=== PATIENT | female | born 1940 | race American Indian/Alaskan Native ===

== ENCOUNTER 2017-06-19 14:46 | Inpatient (IN) | payer MEDICARE, BC ==
[2017-06-19 14:46] VITALS: PULSE 67
[2017-06-19] MEDS ORDERED: Sodium Chloride 0.9% 500 ML IV STA (15:28)
--- NOTE | 2017-06-19 15:31 | ED PDOC ---
Arrival/HPI - General Time Seen by Provider: 06/19/17 15:06 Historian: Patient - History of Present Illness Narrative History of Present Illness (Text): 06/19/17 15:10 The patient, Adilson Puente, a 75 year old female whose PMHx includes AFib, Parkinson's, and HTN, presents to the ED complaining of nausea, vomiting, and TSAI since this morning. Daughter stated patient has been having worsening of urinary symptoms and generalized weakness x 1 week. Patient denies chest pain, shortness of breath, abdominal pain, vaginal bleeding, leg swelling, recent travel, sick contacts, or fever. Daughter noted patient has had catatonic episodes for "a while", however his last episode lasted longer. Dr. Dowell, PMD 06/19/17 15:47 Time/Duration: > week Symptom Course: Worsening (Since this morning) Context: Home Past Medical History - Provider Review Nursing Documentation Reviewed: Yes - Infectious Disease Hx of Infectious Diseases: None - Tetanus Immunization Tetanus Immunization: Unknown - Cardiac Hx Hypertension: Yes - Pulmonary Hx Pneumonia: Yes - Neurological Hx Parkinson's Disease: Yes - Musculoskeletal/Rheumatological Hx Falls: No - Psychiatric Hx Depression: No Hx Emotional Abuse: No Hx Physical Abuse: No Hx Substance Use: No - Surgical History Hx Hysterectomy: Yes - Suicidal Assessment Feels Threatened In Home Enviroment: No Family/Social History - Physician Review Nursing Documentation Reviewed: Yes Family/Social History: Other (Noncontributory) Smoking Status: Former Smoker Hx Alcohol Use: No Hx Substance Use: No Hx Substance Use Treatment: No Allergies/Home Meds Allergies/Adverse Reactions: Allergies No Known Allergies Allergy (Verified 07/23/15 18:28) Home Medications: Home Meds Medication Instructions Recorded Confirmed Cyanocobalamin [Vitamin B12 1000 1 tab PO DAILY 03/02/15 06/19/17 mcg Tab] Carbidopa/Levodopa 25/100 mg 25 mg PO TID 06/19/17 06/19/17 [Sinemet] Carbidopa/Levodopa 50/200 CR 50 mg PO TID 06/19/17 06/19/17 [Sinemet CR] Lisinopril [Zestril] 10 mg PO DAILY 06/19/17 06/19/17 Metoprolol Succinate [Toprol XL] 25 mg PO DAILY 06/19/17 06/19/17 Review of Systems - Review of Systems Systems not reviewed;Unavailable: Other (Patient's daughter at bedside) Constitutional: Fatigue. absent: Weight Change, Fevers, Night Sweats Eyes: Normal ENT: Normal Respiratory: Normal. absent: SOB, Cough, Sputum, Wheezing Cardiovascular: Normal. absent: Chest Pain, Palpitations Gastrointestinal: Nausea, Vomiting. absent: Abdominal Pain Genitourinary Female: Frequency. absent: Vaginal Bleeding, Vaginal Discharge Musculoskeletal: Normal Skin: Normal. absent: Rash Neurological: Headache. absent: Dizziness, Focal Weakness, Gait Changes, Speech Changes, Facial Droop, Disequilibrium Endocrine: Normal Hemo/Lymphatic: Normal Psychiatric: Normal Physical Exam Vital Signs Temp Pulse Resp BP Pulse Ox 06/19/17 17:44 51 L 18 140/57 L 100 06/19/17 15:11 99.0 F 06/19/17 15:10 98.8 F 60 19 194/96 H 100 Temperature: Afebrile Blood Pressure: Normal Pulse: Regular Respiratory Rate: Normal Appearance: Positive for: Well-Appearing, Non-Toxic, Comfortable Pain Distress: None Mental Status: Positive for: other (Alert and oriented 2, place and person) - Systems Exam Head: Present: Atraumatic, Normocephalic Pupils: Present: PERRL Extroacular Muscles: Present: EOMI Conjunctiva: Present: Normal Mouth: Present: Moist Mucous Membranes. No: Drooling Neck: Present: Normal Range of Motion, Trachea Midline. No: Meningeal Signs Respiratory/Chest: Present: Clear to Auscultation, Good Air Exchange. No: Respiratory Distress, Accessory Muscle Use, Wheezes, Retracting, Rhonchi Cardiovascular: Present: Regular Rate and Rhythm, Normal S1, S2. No: Murmurs Abdomen: Present: Normal Bowel Sounds. No: Tenderness, Distention, Peritoneal Signs, Rebound, Guarding Back: Present: Normal Inspection. No: CVA Tenderness Upper Extremity: Present: Normal Inspection, Normal ROM, NORMAL PULSES, Neurovascularly Intact, Capillary Refill < 2s. No: Cyanosis, Edema Lower Extremity: Present: Normal Inspection, NORMAL PULSES, Normal ROM, Neurovascularly Intact, Capillary Refill < 2 s. No: Edema, CALF TENDERNESS Neurological: Present: GCS=15, CN II-XII Intact, Motor Func Grossly Intact, Normal Sensory Function, Normal Cerebellar Funct, Other (Patient feels too fatigued to walk) Skin: Present: Warm, Dry, Normal Color. No: Rashes Psychiatric: Present: Alert, Normal Insight, Normal Concentration Medical Decision Making ED Course and Treatment: 06/19/17 18:[address] Dowell who is the patient's private doctor. I will review since her symptoms, physical exam, imaging, labs. Labs shows urinary tract infection, and patient has generalized weakness. Dr. Dowell agrees with the plan for observation. Re-evaluation Time: 18:57 Reassessment Condition: Re-examined, Improving,but remains with symptoms - Lab Interpretations Lab Results: 06/19/17 16:20 06/19/17 16:20 Lab Results 06/19/17 16:40: Urine Color Yellow, Urine Appearance Sl cloudy, Urine pH 7.0, Ur Specific [place] 1.015, Urine Protein Trace H, Urine Glucose (UA) Negative, Urine Ketones Trace H, Urine Blood Trace-intact H, Urine Nitrate Negative, Urine Bilirubin Negative, Urine Urobilinogen 0.2, Ur Leukocyte Esterase Small H , Urine RBC 1 - 3, Urine WBC 15 - 20, Ur Epithelial Cells 10 - 12, Urine Bacteria Large 06/19/17 16:30: pO2 28 L, VBG pH 7.38, VBG pCO2 60.0, VBG HCO3 35.5 H, VBG Total CO2 37.3 H, VBG O2 Sat (Calc) 59.0, VBG Base Excess 8.2 H, VBG Potassium 3.8, Glucose 101, Lactate 0.7, FiO2 21.0, Sodium 142.0, Chloride 106.0, Venous Blood Potassium 3.8 06/19/17 16:24: POC Glucose (mg/dL) 111 H 06/19/17 16:20: Sodium 142, Potassium 3.4 L, Chloride 103, Carbon Dioxide 31, Anion Gap 11, BUN 15, Creatinine 0.6 L, Est GFR ( Amer) > 60, Est GFR ( Non-Af Amer) > 60, Random Glucose 101, Calcium 8.9, Phosphorus 2.8, Magnesium 2.1, Total Bilirubin 2.2 H, AST 12 L, ALT 17, Alkaline Phosphatase 61, NT-Pro-B Natriuret Pep 255, Total Protein 7.2, Albumin 4.1, Globulin 3.1, Albumin/ Globulin Ratio 1.3 06/19/17 16:20: PT 11.2, INR 1.04, APTT 28.3 06/19/17 16:20: WBC 5.4, RBC 4.27, Hgb 13.8, Hct 40.1, MCV 93.9, MCH 32.3, MCHC 34.4, RDW 14.1, Plt Count 171, MPV 10.9, Gran % 69.7 H, Lymph % (Auto) 22.9, [place] % (Auto) 6.3 H, Eos % (Auto) 0.7 L, Baso % (Auto) 0.4, Gran # 3.74, Lymph # 1.2, [place] # 0.3, Eos # 0.0, Baso # 0.02 I have reviewed the lab results: Yes Interpretation: Abnormal lab values - RAD Interpretation Narrative RAD Interpretations (Text): 06/19/17 17:04 Accession No. : [id number] Patient Name / ID : KING ADILSON / [id number] Exam Date : 06/19/2017 15:47:23 ( Approved ) Study Comment : Sex / Age : F / 77Y Creator : Erick Enrique MD Dictator : Erick Enrique MD Weapons Engineer : Couture Dressmaker : Erick Enrique MD Approver2 : Report Date : 06/19/2017 16:11:26 My Comment : HISTORY: Sepsis Patient COMPARISON: 07/23/2015 FINDINGS: LUNGS: No active pulmonary disease. PLEURA: No significant pleural effusion identified, no pneumothorax apparent. CARDIOVASCULAR: Moderate cardiomegaly OSSEOUS STRUCTURES: No significant abnormalities. VISUALIZED UPPER ABDOMEN: Normal. OTHER FINDINGS: None. IMPRESSION: No active disease. 06/19/17 18:14 Accession No. : [id number] Patient Name / ID : DEANN [facility] / [id number] Exam Date : 06/19/2017 17:04:09 ( Approved ) Study Comment : Sex / Age : F / 77Y Creator : Halima Roper MD Dictator : Halima Roper MD Weapons Engineer : Couture Dressmaker : Halima Roper MD Approver2 : Report Date : 06/19/2017 17:52:20 My Comment : PROCEDURE: CT Abdomen and Pelvis without Oral or IV contrast. HISTORY: Nausea and vomiting COMPARISON: None available. TECHNIQUE: Contiguous axial images of the abdomen and pelvis. No oral or IV contrast administered. Coronal and Sagittal reformats generated and reviewed. Radiation dose: Total exam DLP = 693.98 mGy-cm. This CT exam was performed using one or more of the following dose reduction techniques: Automated exposure control, adjustment of the mA and/or kV according to patient size, and/or use of iterative reconstruction technique. FINDINGS: There is limited evaluation of the solid organs without the administration of IV contrast. Examination limited by paucity of intra-abdominal and intrapelvic fat as well as lack of oral or IV contrast. LOWER THORAX: No visible consolidation, pleural effusion, or pneumothorax. Partially imaged cardiomegaly, dense coronary, and dense valvular calcifications. LIVER: Hepatomegaly. GALLBLADDER AND BILE DUCTS: Unremarkable unenhanced appearance. PANCREAS: Unremarkable unenhanced appearance. SPLEEN: Unremarkable unenhanced appearance. ADRENALS: Unremarkable unenhanced appearance. KIDNEYS AND URETERS: No hydronephrosis or obstructing renal calculus. BLADDER: Decompressed urinary bladder is not well visualized. REPRODUCTIVE: Not adequately visualized. APPENDIX: The appendix is not identified. No secondary signs of acute appendicitis. BOWEL: The stomach is nondistended. Lack of oral contrast limits evaluation for bowel pathology. The bowel loops appear within normal limits of caliber without evidence of intestinal obstruction. Moderate to severe constipation. PERITONEUM: No significant free fluid. No definite free air. LYMPH NODES: No bulky lymphadenopathy identified. VASCULATURE: Atherosclerotic calcifications of the aorta. No aortic aneurysm. BONES: Degenerative changes. OTHER FINDINGS: None. IMPRESSION: Examination markedly limited due to lack of oral and IV contrast as well as paucity of intra-abdominal or intrapelvic fat. Repeat study following the administration of oral and IV contrast is suggested for further evaluation if indicated. Moderate to severe constipation. Partially imaged cardiomegaly. Dense coronary and valvular calcifications. Hepatomegaly. Radiology Orders: 06/19/17 15:26 CHEST PORTABLE [RAD] Stat 06/19/17 15:30 HEAD W/O CONTRAST [CT] Stat 06/19/17 15:39 ABD & PELVIS W/O PO OR IV CONT [CT] Stat - EKG Interpretation Interpreted by ED Physician: Yes (NSR @ 62 bpm. Normal interval) Type: 12 lead EKG Comparison: No previous EKG avail. - Medication Orders Current Medication Orders: Discontinued Medications Sodium Chloride (Sodium Chloride 0.9%) 500 mls @ 999 mls/hr IV .Q31M STA Stop: 06/19/17 15:58 Last Admin: 06/19/17 16:30 Dose: 999 mls/hr eMAR Start Stop Document 06/19/17 16:30 SF (Rec: 06/19/17 17:10 SF [id number]) Intravenous Solution Start Date 06/19/17 Start Time 16:30 End Date 06/19/17 End time 17:00 Total Infusion Time 30 Ceftriaxone Sodium (Rocephin 1 Gram Ivpb) 1 gm in 100 mls @ 200 mls/hr IVPB STAT STA PRN Reason: Protocol Stop: 06/19/17 18:36 Disposition/Present on Arrival - Present on Arrival Any Indicators Present on Arrival: No History of DVT/PE: No History of Uncontrolled Diabetes: No Urinary Catheter: No History Surgical Site Infection Following: None - Disposition Have Diagnosis and Disposition been Completed?: Yes Diagnosis: Acute cystitis, Generalized weakness, Unstable gait, Failure to thrive Disposition: HOSPITALIZED Disposition Time: 18:58 Patient Plan: Admission Condition: STABLE Discharge Instructions (ExitCare): Weakness (ED) Referrals: Moody Dowell MD [Primary Care Provider] - Follow up with primary
--- NOTE | 2017-06-19 16:13 | RAD ---
HISTORY: Sepsis Patient COMPARISON: 07/23/2015 FINDINGS: LUNGS: No active pulmonary disease. PLEURA: No significant pleural effusion identified, no pneumothorax apparent. CARDIOVASCULAR: Moderate cardiomegaly OSSEOUS STRUCTURES: No significant abnormalities. VISUALIZED UPPER ABDOMEN: Normal. OTHER FINDINGS: None. IMPRESSION: No active disease.
[2017-06-19 16:40] LABS: BASO # 0.02 K/mm3 (0.0-2.0); BASO % 0.4 % (0.0-3.0); EOS % 0.7 % (1.5-5.0); GRAN # 3.74 (1.4-6.5); GRAN % 69.7 % (50.0-68.0); HEMATOCRIT 40.1 % (36.0-48.0); LYMPH # 1.2 (1.2-3.4); LYMPH % 22.9 % (22.0-35.0); MEAN CELL VOLUME 93.9 fl (80.0-105.0); MEAN CORPUSCULAR HEMOGLOBIN 32.3 pg (25.0-35.0); MEAN CORPUSCULAR HGB CONC 34.4 g/dl (31.0-37.0); MEAN PLATELET VOLUME 10.9 fl (7.0-11.0); MONO # 0.3 (0.1-0.6); MONO % 6.3 % (1.0-6.0); RED CELL DISTRIBUTION WIDTH 14.1 % (11.5-14.5); WHITE BLOOD COUNT 5.4 10^3/ul (4.5-11.0)
[2017-06-19 16:47] LABS: VENOUS BLOOD GAS BASE EXCESS 8.2 mmol/L (0.0-2.0); VENOUS BLOOD PH 7.38 (7.32-7.43)
[2017-06-19 16:50] LABS: INR 1.04 (0.93-1.08); PARTIAL THROMBOPLASTIN TIME 28.3 Seconds (23.7-30.8)
[2017-06-19 16:51] LABS: ALB/GLOB RATIO 1.3 (1.1-1.8); ALKALINE PHOSPHATASE 61 U/L (38-126); ALT/SGPT 17 U/L (7-56); AST/SGOT 12 U/L (14-36); BILIRUBIN,TOTAL 2.2 mg/dL (0.2-1.3); BLOOD UREA NITROGEN 15 mg/dL (7-21); CALCIUM 8.9 mg/dL (8.4-10.5); CARBON DIOXIDE 31 mmol/L (21-33); CHLORIDE 103 mmol/L (98-107); GFR AFRICAN-AMERICAN > 60; GLUCOSE,RANDOM 101 mg/dL (70-110); MAGNESIUM 2.1 mg/dL (1.7-2.2); PHOSPHOROUS 2.8 mg/dL (2.5-4.5); POTASSIUM 3.4 mmol/L (3.6-5.0); SODIUM 142 mmol/L (132-148); TOTAL PROTEIN 7.2 g/dL (5.8-8.3)
[2017-06-19 16:59] LABS: URINE BILIRUBIN NEGATIVE (NEGATIVE); URINE BLOOD TRACE-INTACT (NEGATIVE); URINE GLUCOSE (UA) NEGATIVE (NEGATIVE); URINE KETONE TRACE mg/dL (NEGATIVE); URINE LEUKOCYTE ESTERASE SMALL Leu/uL (NEGATIVE); URINE PROTEIN TRACE mg/dL (<30 mg/dL); URINE UROBILINOGEN 0.2 E.U./dL (<1 E.U./dL)
[2017-06-19 17:06] LABS: URINE APPEARANCE SL CLOUDY (CLEAR); URINE COLOR YELLOW (YELLOW)
[2017-06-19 17:17] LABS: URINE BACTERIA LARGE (NEG); URINE WBC 15 - 20 /hpf (0-6)
--- NOTE | 2017-06-19 17:30 | CARD ---
APPROVED REPORT EKG Measurement Heart [id number] <Conclusion> Normal sinus rhythm Normal ECG
--- NOTE | 2017-06-19 17:34 | CT ---
PROCEDURE: CT HEAD WITHOUT CONTRAST. HISTORY: TSAI COMPARISON: Noncontrast head CT performed 07/23/15 TECHNIQUE: Axial computed tomography images were obtained through the head/brain without intravenous contrast. Radiation dose: Total exam DLP = 1114.07 MGy-cm. This CT exam was performed using one or more of the following dose reduction techniques: Automated exposure control, adjustment of the mA and/or kV according to patient size, and/or use of iterative reconstruction technique. FINDINGS: Streak artifact obscures evaluation of the skullbase. HEMORRHAGE: No intracranial hemorrhage. BRAIN: Diffuse atrophy with prominence of the ventricles and sulci noted. No mass effect or edema. Dense intracranial atherosclerosis. Scattered periventricular and subcortical white matter hypodensities, which are nonspecific, but often seen with chronic microvascular ischemic disease. Please note that MRI with diffusion imaging is more sensitive in the detection of acute ischemic event. VENTRICLES: No hydrocephalus. CALVARIUM: Unremarkable. PARANASAL SINUSES: Unremarkable as visualized. No significant inflammatory changes. MASTOID AIR CELLS: Unremarkable as visualized. No inflammatory changes. OTHER FINDINGS: None. IMPRESSION: Generalized atrophy. Nonspecific white matter changes.
--- NOTE | 2017-06-19 17:54 | CT ---
PROCEDURE: CT Abdomen and Pelvis without Oral or IV contrast. HISTORY: Nausea and vomiting COMPARISON: None available. TECHNIQUE: Contiguous axial images of the abdomen and pelvis. No oral or IV contrast administered. Coronal and Sagittal reformats generated and reviewed. Radiation dose: Total exam DLP = 693.98 mGy-cm. This CT exam was performed using one or more of the following dose reduction techniques: Automated exposure control, adjustment of the mA and/or kV according to patient size, and/or use of iterative reconstruction technique. FINDINGS: There is limited evaluation of the solid organs without the administration of IV contrast. Examination limited by paucity of intra-abdominal and intrapelvic fat as well as lack of oral or IV contrast. LOWER THORAX: No visible consolidation, pleural effusion, or pneumothorax. Partially imaged cardiomegaly, dense coronary, and dense valvular calcifications. LIVER: Hepatomegaly. GALLBLADDER AND BILE DUCTS: Unremarkable unenhanced appearance. PANCREAS: Unremarkable unenhanced appearance. SPLEEN: Unremarkable unenhanced appearance. ADRENALS: Unremarkable unenhanced appearance. KIDNEYS AND URETERS: No hydronephrosis or obstructing renal calculus. BLADDER: Decompressed urinary bladder is not well visualized. REPRODUCTIVE: Not adequately visualized. APPENDIX: The appendix is not identified. No secondary signs of acute appendicitis. BOWEL: The stomach is nondistended. Lack of oral contrast limits evaluation for bowel pathology. The bowel loops appear within normal limits of caliber without evidence of intestinal obstruction. Moderate to severe constipation. PERITONEUM: No significant free fluid. No definite free air. LYMPH NODES: No bulky lymphadenopathy identified. VASCULATURE: Atherosclerotic calcifications of the aorta. No aortic aneurysm. BONES: Degenerative changes. OTHER FINDINGS: None. IMPRESSION: Examination markedly limited due to lack of oral and IV contrast as well as paucity of intra-abdominal or intrapelvic fat. Repeat study following the administration of oral and IV contrast is suggested for further evaluation if indicated. Moderate to severe constipation. Partially imaged cardiomegaly. Dense coronary and valvular calcifications. Hepatomegaly.
[2017-06-19] MEDS ORDERED: cefTRIAXone 1 gm 1 GM/100 ML BAG IVPB STA (18:07)
[2017-06-19] MEDS ORDERED: Sodium Chloride 0.9% 1,000 ML IV STA (19:16)
[2017-06-19] MEDS ORDERED: POLYETHYLENE GLYCOL 3350 17 GM/Dose PACKET PO STA (20:49)
[2017-06-20] MEDS ORDERED: Carbidopa/Levodopa 50/200 CR PO SCH ×2 (10:00→20:13)
[2017-06-20] MEDS ORDERED: Carbidopa/Levodopa 50/200 CR PO ONE (10:00)
[2017-06-20 10:52] VITALS: BMI 25.4
[2017-06-20] MEDS: cefTRIAXone 1 gm 1 GM/100 ML BAG IVPB SCH (10:59)
[2017-06-20] MEDS: Metoprolol Succinate 25 mg XL Tab PO SCH (11:00)
[2017-06-20] MEDS: Carbidopa/Levodopa 50/200 CR PO SCH ×3 (13:53→22:07)
[2017-06-21 07:18] LABS: HEMATOCRIT 38.9 % (36.0-48.0); MEAN CELL VOLUME 94.6 fl (80.0-105.0); MEAN CORPUSCULAR HEMOGLOBIN 31.6 pg (25.0-35.0); MEAN CORPUSCULAR HGB CONC 33.4 g/dl (31.0-37.0); WHITE BLOOD COUNT 5.6 10^3/ul (4.5-11.0)
[2017-06-21 07:37] VITALS: RESP 20
[2017-06-21 07:41] LABS: ALB/GLOB RATIO 1.3 (1.1-1.8); ALKALINE PHOSPHATASE 55 U/L (38-126); ALT/SGPT 12 U/L (7-56); AST/SGOT 15 U/L (14-36); BILIRUBIN,TOTAL 1.5 mg/dL (0.2-1.3); BLOOD UREA NITROGEN 15 mg/dL (7-21); CALCIUM 8.7 mg/dL (8.4-10.5); CARBON DIOXIDE 31 mmol/L (21-33); CHLORIDE 103 mmol/L (98-107); GFR AFRICAN-AMERICAN > 60; GLUCOSE,RANDOM 93 mg/dL (70-110); POTASSIUM 3.6 mmol/L (3.6-5.0); SODIUM 140 mmol/L (132-148); TOTAL PROTEIN 6.6 g/dL (5.8-8.3)
[2017-06-21] MEDS: Carbidopa/Levodopa 50/200 CR PO SCH ×3 (08:12→22:01)
[2017-06-21] MEDS: cefTRIAXone 1 gm 1 GM/100 ML BAG IVPB SCH (09:50)
[2017-06-21] MEDS: Metoprolol Succinate 25 mg XL Tab PO SCH (09:52)
[2017-06-21] MEDS ORDERED: Carbidopa/Levodopa 50/200 CR PO SCH (10:00)
--- NOTE | 2017-06-21 12:35 | PN ---
DATE: SUBJECTIVE: A 77-year-old black female, admitted to the hospital with urosepsis, change in mental status, confusion, worsening of her Parkinson's, episodes of catatonic state. The patient's vital signs are stable. She is afebrile. She is receiving IV antibiotics for her urinary tract infection. Doing physical therapy and occupational therapy. PLAN: Plan is to eventually do subacute rehab. Microbiology showed E. coli in the urine. No growth in the blood. Her E. coli is resistant to ampicillin, but sensitive to all her antibiotics including ceftriaxone, which she is on. Blood cultures over 100,000. Plan is to continue physical therapy and occupational therapy and IV antibiotics. Moody Dowell MD
[2017-06-22] MEDS: Carbidopa/Levodopa 50/200 CR PO SCH ×3 (08:04→21:59)
[2017-06-22] MEDS: Metoprolol Succinate 25 mg XL Tab PO SCH (09:03)
[2017-06-22] MEDS: cefTRIAXone 1 gm 1 GM/100 ML BAG IVPB SCH (09:05)
--- NOTE | 2017-06-22 12:07 | PN ---
DATE: SUBJECTIVE: A 77-year-old black female with paroxysmal disease admitted to the hospital with urosepsis growing E coli sensitive to mostly antibiotics. The patient is on Rocephin, doing well. PHYSICAL EXAMINATION: VITAL SIGNS: Stable. The patient is doing physical therapy and occupational therapy. She is complaining only about lack of sleep. PLAN: Plan was made to add sleep medication at night and to continue present therapy and IV antibiotics. Continue physical therapy and occupational therapy. Moody Dowell MD
[2017-06-22] MEDS ORDERED: DiphenhydrAMINE 12.5 mg/5 ml LIQ UD (5 ml) PO PRN (22:00)
--- NOTE | 2017-06-23 08:40 | PQF GENQUE ---
This form is a permanent part of the medical record Dr. Dowell, Just a reminder that the term "urosepsis" is not an accurate term. Please clarify if patient has systemic infection/sepsis or localized UTI . Clarification of your documentation is requested to better reflect the severity of illness and intensity of treatment of your patient. Indicators present [] Specify: [] [] Specify: [] [] Specify: [] [] Specify: [] Location in the medical record that reflects the above clinical findings: [] Treatment Provided: [] PHYSICIAN'S RESPONSE Based on your medical judgment of the clinical indicators outlined above please clarify the following: [x]x Practitioner response [] If unable to determine, please check the box, sign and date. Present On Admission (POA) Indicator: [] Present at the time of admission [x] Not present at the time of admission [] Clinically Undetermined In responding to this query, please exercise your independent professional judgment. The fact that a question is asked does not imply that any particular answer is desired or expected. Thank you for your clarification on this documentation. If you have any questions please call:[ ] * Thank you, [ ]Dodie Price [facility] #[id number] fence maker MARLON
[2017-06-23] MEDS: Carbidopa/Levodopa 50/200 CR PO SCH ×2 (08:56→13:31)
--- NOTE | 2017-06-23 08:57 | HP ---
HISTORY OF PRESENT ILLNESS: A 77-year-old white female with a history of advanced Parkinson disease. The patient had a change in mental status, confused and disorientation, episodes of catatonic state, which has occurred in the past. The patient was brought to the emergency room, was evaluated and was found to have urinary tract infection, possibly early urosepsis. PHYSICAL EXAMINATION: VITAL SIGNS: Her vital signs were stable. She is afebrile. Blood pressure is slightly elevated at 177/90, pulse 119. GENERAL: Shows a well-developed, well-nourished white female, in no apparent distress. HEENT: Within normal limits. HEART: Regular sinus rhythm. No S3 or murmur. NEUROLOGIC: There is mild resting tremor and cogwheel rigidity of the upper and lower extremities. EXTREMITIES: Without cyanosis, clubbing, or edema. BACK: There is no CVA tenderness. CHEST: Clear to auscultation. ABDOMEN: Benign. LABORATORY DATA: Her laboratory data revealed a white count of 5.4, H and H were within normal limits. BUN and creatinine were stable. She had pyuria and bacteria consistent with large amount of bacteria consistent with urinary tract infection. The patient was treated with IV antibiotics. She is more stable this morning, she tolerated her diet well. Vital signs are stable. We are waiting cultures to come back. She is back on her Parkinson medications. IMPRESSION: Exacerbation of Parkinson, urinary tract infection, possibly urosepsis. Moody Dowell MD
[2017-06-23] MEDS: cefTRIAXone 1 gm 1 GM/100 ML BAG IVPB SCH (09:00)
[2017-06-23] MEDS: Metoprolol Succinate 25 mg XL Tab PO SCH (09:07)
[2017-06-23 09:09] VITALS: BP 137/96
[2017-06-23 10:18] VITALS: PULSE 76; TEMP 98.7; O2SAT 100
--- NOTE | 2017-06-23 14:56 | PN ---
DATE: SUBJECTIVE: The patient is a 77-year-old black female history of Parkinson disease, has been hospitalized with urinary tract infection, change in mental status, confusion, disorientation, and the patient is better, more stable, doing better with physical therapy and occupational therapy. She is out of bed to chair. She is tolerating it very well. She is afebrile. E. coli is in the urine, but not in the blood cultures. ASSESSMENT AND PLAN: The patient will be continued on p.o. antibiotics and discharged to nursing as soon as it is available. Moody Dowell MD
== END 2017-06-23 16:28 | disposition home or self-care (01) | DRG 690 ==
LOC: ED 14:46 → ERH 19:28 → 3RNO 06-20 00:33 → OBSVTOIN 06-20 11:55
PROVIDERS: ADMIT Internal Medicine; ATTEND Internal Medicine
DX: N39.0 Urinary tract infection, site not specified (principal); G20 Parkinson's disease; I48.91 Unspecified atrial fibrillation; B96.20 Unspecified Escherichia coli [E. coli] as the cause of diseases classified elsewhere; I10 Essential (primary) hypertension; R62.7 Adult failure to thrive; K59.00 Constipation, unspecified; Z87.01 Personal history of pneumonia (recurrent)

== ENCOUNTER 2017-12-28 16:21 | Inpatient (IN) | payer MEDICARE, BC ==
[2017-12-28 16:21] VITALS: PULSE 67
[2017-12-28 16:33] VITALS: BMI 25.2
--- NOTE | 2017-12-28 16:58 | ED PDOC ---
Arrival/HPI - General Chief Complaint: Trauma Time Seen by Provider: 12/28/17 16:39 Historian: Patient, Family (daughter whos a caregiver) - History of Present Illness Narrative History of Present Illness (Text): 12/28/17 1644 pt p/w + trip and fall while trying to get out of bed, unwitness, today/this afternoon, prior to ED arrival; pt's daughter was in the bathroom when this occurred, pt heard a thump and came to pt's rescue almost immediately and found pt face down and awake but not at pt's baseline mental status; no gross bleeding /vomiting/urinary/bowel incontinence are noted. Daughter did not like the way pt appeared and looked after the fall. Pt appeared dazed and confused, + worsening weakness/fatigue is noted; pt is complaining of lower back pain, + mild headache, + right ankle/leg pain; per daughter, pt has had 3 episodes of fall over the past 1 month. pt also states intermittent left sided chest pain x 1-2 weeks; pt denied any fever/chills/sweats, no sob, no new abd pain, no n/v, no numbness/tingling, no urinary/bowel changes, no incontinence; no slurr speech , no gross behavior changes are noted, as per daughter NO sick contact/travel administrator lives with daughter, main caregiver pt is right hand dominate PCP: Magalys Time/Duration: Prior to Arrival Symptom Onset: Sudden Symptom Course: Unchanged Severity Level: Moderate Activities at Onset: Rest Context: Home Past Medical History - Provider Review Nursing Documentation Reviewed: Yes - Travel History Have you recently traveled outside [place] w/in the past 3 mons?: No - Past History Past History: No Previous - Infectious Disease Hx of Infectious Diseases: None - Tetanus Immunization Tetanus Immunization: Unknown - Reproductive Menopause: Yes Currently : No - Cardiac Hx Cardiac Disorders: Yes Hx Hypertension: Yes - Pulmonary Hx Respiratory Disorders: Yes Hx Pneumonia: Yes - Neurological Hx Neurological Disorder: Yes Hx Dementia: Yes Hx Parkinson's Disease: Yes - HEENT Hx HEENT Disorder: No - Renal Hx Renal Disorder: No - Endocrine/Metabolic Hx Endocrine Disorders: No - Hematological/Oncological Hx Blood Disorders: No - Integumentary Hx Dermatological Disorder: No - Musculoskeletal/Rheumatological Hx Musculoskeletal Disorders: No - Gastrointestinal Hx Gastrointestinal Disorders: No - Genitourinary/Gynecological Hx Genitourinary Disorders: Yes Hx Urinary Tract Infection: Yes - Psychiatric Hx Psychophysiologic Disorder: No Hx Substance Use: No - Surgical History Other/Comment: Hysterectomy - Anesthesia Hx Anesthesia: Yes Hx Anesthesia Reactions: No Hx Malignant Hyperthermia: No - Suicidal Assessment Feels Threatened In Home Enviroment: No Family/Social History - Physician Review Nursing Documentation Reviewed: Yes Family/Social History: No Known Family HX Smoking Status: Never Smoked Hx Alcohol Use: No Hx Substance Use: No Hx Substance Use Treatment: No Allergies/Home Meds Allergies/Adverse Reactions: Allergies No Known Allergies Allergy (Verified 07/23/15 18:28) Home Medications: Home Meds Medication Instructions Recorded Confirmed Carbidopa/Levodopa 25/100 mg 25 mg PO TID 06/19/17 12/28/17 [Sinemet] Carbidopa/Levodopa 50/200 CR 50 mg PO TID 06/19/17 12/28/17 [Sinemet CR] Lisinopril [Zestril] 10 mg PO DAILY 06/19/17 12/28/17 Metoprolol Succinate [Toprol XL] 25 mg PO DAILY 06/19/17 12/28/17 Carbidopa/Levodopa 25/100 mg 1 tab PO 5XD 12/28/17 12/28/17 [Sinemet] Donepezil [Aricept] 5 mg PO HS 12/28/17 12/28/17 Folic Acid 1 mg PO DAILY 12/28/17 12/28/17 Review of Systems - Review of Systems Constitutional: Fatigue Eyes: Normal ENT: Normal Respiratory: Normal Cardiovascular: Chest Pain Gastrointestinal: Abdominal Pain (chronic) Genitourinary Female: Normal Musculoskeletal: Back Pain, Other (right leg pain) Skin: Normal Neurological: Headache, Dizziness Endocrine: Normal Hemo/Lymphatic: Normal Psychiatric: Normal Physical Exam Vital Signs Reviewed: Yes Vital Signs Temp Pulse Resp BP Pulse Ox 12/28/17 18:49 68 18 172/79 H 98 12/28/17 16:21 98.6 F 73 16 186/84 H 96 Temperature: Afebrile Blood Pressure: Hypertensive Pulse: Regular Respiratory Rate: Normal Appearance: Positive for: Well-Appearing, Uncomfortable, Other (sitting/resting in bed, alert/awake, GCS = 15, oriented x 2 (not to time); cooperative, follows command with ease) Pain Distress: None Mental Status: Positive for: Alert and Oriented X 3 - Systems Exam Head: Present: Atraumatic, Normocephalic Pupils: Present: PERRL, Other (no nystagmus, no photophobia, sclera anicteric, visual field intact b/l) Extroacular Muscles: Present: EOMI Conjunctiva: Present: Normal Ears: Present: Normal Mouth: Present: Dry, Other (fair dentitions, no drooling/stridor, no exudate/ lesions, uvula/tongue are midline) Pharnyx: Present: Normal Nose (External): Present: Atraumatic Nose (Internal): Present: Normal Inspection Neck: Present: Normal Range of Motion, Trachea Midline, Other (intact ROM, no midline tenderness, no nuchal rigidity). No: Meningeal Signs, MIDLINE TENDERNESS Respiratory/Chest: Present: Clear to Auscultation, Good Air Exchange, Other ( CTA b/l, no w/r/r, no accessory muscle use noted, no tachypenia). No: Respiratory Distress, Accessory Muscle Use Cardiovascular: Present: Regular Rate and Rhythm, Normal S1, S2 Abdomen: Present: Normal Bowel Sounds, Other (well nourished female, no focal tenderness, no masses/rebound/guarding/rigidity, no geronimo's sign, no mcburney' s point tenderness) Back: Present: Normal Inspection, Other (intact ROM, no midline tenderness, no step off). No: CVA Tenderness, Midline Tenderness, Paraspinal Tenderness Upper Extremity: Present: Normal Inspection, Normal ROM, NORMAL PULSES, Neurovascularly Intact, Capillary Refill < 2s Lower Extremity: Present: Normal Inspection, NORMAL PULSES, Neurovascularly Intact, Other (strength 5-/5 b/l, + right lower ankle tenderness, no gross deformities, neurovasc intact b/l) Neurological: Present: GCS=15, CN II-XII Intact, Speech Normal Skin: Present: Warm, Other (cap refill ~ 1sec, no ulcerations, no petechiae, mild pallor noted). No: Rashes Psychiatric: Present: Alert Medical Decision Making ED Course and Treatment: 12/28/17 [id number] Impression: freq falls, post fall weakness, unable to walk; generalized fatigue i have consider all the differential diagnosis regarding pt's chief medical complaints/clinical findings, including but are not limited to: freq falls, post fall weakness, unable to walk; generalized fatigue A/P: freq falls, post fall weakness, unable to walk; generalized fatigue - labs - iv - ct - xray - supportive care - observe/reevaluation 12/28/17 18:24 Dr Dowell contacted, made aware, agrees with ED mgt/txt and agrees with admission recommendation pt is currently comfortable pt/family are made aware of pt's medical results agrees with admission Re-evaluation Time: 18:21 Reassessment Condition: Unchanged - Lab Interpretations Lab Results: 12/28/17 17:00 12/28/17 17:00 Lab Results 12/28/17 17:00: PT 12.2, INR 1.07, APTT 24.1 L 12/28/17 17:00: Sodium 143, Potassium 3.8, Chloride 105, Carbon Dioxide 27, Anion Gap 15, BUN 29 H, Creatinine 0.9, Est GFR ( Amer) > 60, Est GFR ( Non-Af Amer) > 60, Random Glucose 164 H, Calcium 8.9, Total Bilirubin 1.1, AST 18, ALT 6 L, Alkaline Phosphatase 76, Troponin I < 0.01, NT-Pro-B Natriuret Pep 381, Total Protein 7.3, Albumin 4.1, Globulin 3.2, Albumin/Globulin Ratio 1.3, Lipase 90 12/28/17 17:00: WBC 6.0, RBC 4.22, Hgb 13.5, Hct 40.2, MCV 95.3, MCH 32.0, MCHC 33.6, RDW 14.1, Plt Count 191, MPV 10.3, Gran % 80.8 H, Lymph % (Auto) 14.8 L, [place] % (Auto) 3.8, Eos % (Auto) 0.3 L, Baso % (Auto) 0.3, Gran # 4.86, Lymph # ( Auto) 0.9 L, [place] # (Auto) 0.2, Eos # (Auto) 0.0, Baso # (Auto) 0.02 I have reviewed the lab results: Yes Interpretation: All labs normal - RAD Interpretation Narrative RAD Interpretations (Text): 12/28/17 18:21 Prelimary results: L/s - anterior subluxation of L5/S1 mild djd/osteopenia no acute compression fx noted Pelvis - calcified vascularture noted Physician Impression : Normal CXR - ? right basiliar effusion/blunting of costrophrenic angle cardiomeagly Physician Impression : Abnormal right ankle - intact mortius djd/osteopenia no acute fx/dislocation noted Radiology Orders: 12/28/17 16:39 HEAD W/O CONTRAST [CT] Stat 12/28/17 16:40 CHEST TWO VIEWS (PA/LAT) [RAD] Stat 12/28/17 16:41 ANKLE RIGHT 3 VIEWS ROUTINE [RAD] Stat PELVIS ONE VIEW [RAD] Stat 12/28/17 16:42 LS SPINE AP/LAT [RAD] Stat [employer] Teacher: ED Physician, Radiologist - EKG Interpretation EKG Interpretation (Text): 12/28/17 18:22 NSR at 80 bpm, LAD, no ectopy, non-specific T wave abnl, no st changes, ABNL EKG ; unchanged compare with old ekg 06/2017 Interpreted by ED Physician: Yes Type: 12 lead EKG Comparison: Similar to previous EKG - Medication Orders Current Medication Orders: Discontinued Medications Acetaminophen (Tylenol 325mg Tab) 650 mg PO STAT STA Stop: 12/28/17 16:44 Last Admin: 12/28/17 17:14 Dose: 650 mg MAR Pain/Vitals Document 12/28/17 17:14 SRE (Rec: 12/28/17 17:14 SRE [id number]) Pain Reassessment Is This A Pain ReAssessment? Yes Re-Assess: ALBER Pain/Vitals Document 12/28/17 18:14 SRE (Rec: 12/28/17 19:11 SRE [id number]) Pain Reassessment Is This A Pain ReAssessment? No Sleep Is patient sleeping during reassessment? No Presence of Pain Presence of Pain Yes Pain Scale Used Pain Scale Used Numeric Acetaminophen (Tylenol 325mg Tab) 650 mg PO STAT STA Stop: 12/30/17 04:30 Last Admin: 12/30/17 04:30 Dose: Not Given Non-Admin Reason: Patient Refused Amlodipine Besylate (Norvasc) 5 mg PO DAILY [facility] Last Admin: 12/31/17 09:57 Dose: 5 mg [facility] Pulse and Blood Pressure Document 12/31/17 09:57 MANIL (Rec: 12/31/17 09:57 MANIL [id number]) Pulse Pulse Rate (60-90) 61 Blood Pressure Blood Pressure (100/60-150/90) 163/78 Aspirin (Aspirin) 325 mg PO STAT STA Stop: 12/28/17 18:29 Last Admin: 12/28/17 19:14 Dose: 325 mg Carbidopa/Levodopa (Sinemet) 1 tab PO 5XD [facility] Last Admin: 12/29/17 10:39 Dose: 1 tab Carbidopa/Levodopa (Sinemet Cr) 1 tab PO BID LEELA Carbidopa/Levodopa (Sinemet Cr) 1 tab PO 0730,1130 LEELA Carbidopa/Levodopa (Sinemet Cr) 1 tab PO 0730,1130,2200 LEELA Carbidopa/Levodopa (Sinemet Cr) 1 tab PO 0730,1130,2200 [facility] Last Admin: 12/31/17 12:43 Dose: 1 tab Carbidopa/Levodopa (Sinemet) 1 tab PO 0730,1130,1600,2000 [facility] Last Admin: 12/31/17 12:43 Dose: 1 tab Carbidopa/Levodopa (Sinemet) 1 tab PO 2200 [facility] Last Admin: 12/30/17 22:11 Dose: 1 tab Docusate Sodium (Colace) 100 mg PO DAILY [facility] Last Admin: 12/31/17 09:57 Dose: 100 mg Donepezil HCl (Aricept) 5 mg PO HS [facility] Last Admin: 12/30/17 22:11 Dose: 5 mg Folic Acid (Folic Acid) 1 mg PO DAILY [facility] Last Admin: 12/31/17 09:58 Dose: 1 mg Sodium Chloride (Sodium Chloride 0.9%) 1,000 mls @ 100 mls/hr IV .Q10H [facility] Last Admin: 12/30/17 22:12 Dose: 100 mls/hr eMAR Start Stop Document 12/30/17 22:12 YULY (Rec: 12/30/17 22:12 YULY [facility] [id number]) Intravenous Solution Start Date 12/30/17 Start Time 22:12 Insulin Human Regular (Humulin R Low) 0 units SC ACHS [facility] PRN Reason: Protocol Last Admin: 12/31/17 12:43 Dose: 1 units MAR Blood Glucose Document 12/31/17 12:43 MANIL (Rec: 12/31/17 12:44 MANIL [facility] [id number]) Blood Glucose Finger Stick Blood Glucose (70-120) 187 Subcutaneous Administrations Document 04/25/18 12:43 MANIL (Rec: 12/31/17 12:44 MANIL [id number]) Injection Site MAR Injection Site Right Arm Charges for Administration # of Subcutaneous Administrations 1 Lisinopril (Zestril) 10 mg PO DAILY [facility] Last Admin: 12/31/17 09:56 Dose: 10 mg MAR Pulse and Blood Pressure Document 12/31/17 09:56 MANIL (Rec: 12/31/17 09:57 [place] [id number]) Pulse Pulse Rate (60-90) 61 Blood Pressure Blood Pressure (100/60-150/90) 163/78 Lisinopril (Zestril) 20 mg PO DAILY [facility] Last Admin: 12/31/17 09:57 Dose: 20 mg MAR Pulse and Blood Pressure Document 12/31/17 09:57 MANIL (Rec: 12/31/17 09:57 [place] [id number]) Pulse Pulse Rate (60-90) 61 Blood Pressure Blood Pressure (100/60-150/90) 163/78 Metoprolol Succinate (Toprol Xl) 25 mg PO DAILY [facility] Last Admin: 12/31/17 09:59 Dose: 25 mg MAR Pulse and Blood Pressure Document 12/31/17 09:59 MANIL (Rec: 12/31/17 09:59 [place] [id number]) Pulse Pulse Rate (60-90) 61 Blood Pressure Blood Pressure (100/60-150/90) 163/78 Disposition/Present on Arrival - Present on Arrival Any Indicators Present on Arrival: No History of DVT/PE: No History of Uncontrolled Diabetes: No Urinary Catheter: No History of Decub. Ulcer: No History Surgical Site Infection Following: None - Disposition Have Diagnosis and Disposition been Completed?: Yes Diagnosis: Ambulatory dysfunction, Fall, Weakness, Parkinson disease, Unstable gait Disposition: HOSPITALIZED Disposition Time: 18:25 Patient Plan: Admission Condition: STABLE
[2017-12-28] MEDS: Sodium Chloride 0.9% 1,000 ML IV SCH (17:21)
[2017-12-28 17:34] LABS: BASO # 0.02 K/mm3 (0.0-2.0); BASO % 0.3 % (0.0-3.0); EOS % 0.3 % (1.5-5.0); GRAN # 4.86 (1.4-6.5); GRAN % 80.8 % (50.0-68.0); HEMOGLOBIN 13.5 g/dL (12.0-16.0); LYMPH # 0.9 (1.2-3.4); LYMPH % 14.8 % (22.0-35.0); MEAN CELL VOLUME 95.3 fl (80.0-105.0); MEAN CORPUSCULAR HGB CONC 33.6 g/dl (31.0-37.0); MEAN PLATELET VOLUME 10.3 fl (7.0-11.0); MONO # 0.2 (0.1-0.6); MONO % 3.8 % (1.0-6.0); RBC 4.22 10^6/uL (3.5-6.1); RED CELL DISTRIBUTION WIDTH 14.1 % (11.5-14.5)
[2017-12-28 17:41] LABS: INR 1.07 (0.93-1.08); PARTIAL THROMBOPLASTIN TIME 24.1 Seconds (25.1-36.5); PROTHROMBIN TIME 12.2 SECONDS (9.4-12.5)
[2017-12-28 18:10] LABS: BLOOD UREA NITROGEN 29 mg/dL (7-21); GFR AFRICAN-AMERICAN > 60; GFR NON-AFRICAN AMERICAN > 60
[2017-12-28 18:11] LABS: ALB/GLOB RATIO 1.3 (1.1-1.8); ALBUMIN 4.1 g/dL (3.0-4.8); B-TYPE NATRIURETIC PEPTIDE 381 pg/mL (0-450); CALCIUM 8.9 mg/dL (8.4-10.5)
[2017-12-28 18:12] LABS: ALT/SGPT 6 U/L (7-56); AST/SGOT 18 U/L (14-36); LIPASE 90 U/L (23-300); TROPONIN I < 0.01 ng/mL
[2017-12-28 19:19] LABS: PH,URINE 5.5 (4.7-8.0); URINE BILIRUBIN NEGATIVE (NEGATIVE); URINE BLOOD NEGATIVE (NEGATIVE); URINE GLUCOSE (UA) NEGATIVE (NEGATIVE); URINE LEUKOCYTE ESTERASE NEGATIVE Leu/uL (NEGATIVE)
--- NOTE | 2017-12-28 19:23 | CT ---
EXAM: CT Head Without Intravenous Contrast EXAM DATE/TIME: 12/28/2017 4:39 PM CLINICAL HISTORY: 77 years old, female; Signs and symptoms; Syncope and collapse; Additional info: Fall, ? syncope TECHNIQUE: Axial computed tomography images of the head/brain without intravenous contrast. All CT scans at this facility use one or more dose reduction techniques, viz.: automated exposure control; ma/kV adjustment per patient size (including targeted exams where dose is matched to indication; i.e. head); or iterative reconstruction technique. Coronal and sagittal reformatted images were created and reviewed. COMPARISON: Prior head CT of 2017-06-19 FINDINGS: BRAIN: Areas of hypodensity in the white matter bilaterally, nonspecific in appearance, but most likely representing chronic small vessel ischemic changes, in a patient of this age. No significant acute abnormality identified. No acute hemorrhage seen within the brain. No acute extra-axial fluid collections visualized. No evidence of significant mass effect within the brain. VENTRICLES: No evidence of significant hydrocephalus. BONES/JOINTS: No acute fractures or other acute bony abnormality noted. SOFT TISSUES: No acute abnormality of the visualized soft tissues is seen. VASCULATURE: Atherosclerotic calcification. SINUSES: Visualized paranasal sinuses appear clear. MASTOID AIR CELLS: Mastoid air cells appear clear. IMPRESSION: - No acute findings seen within the brain. - See above for remaining findings.
[2017-12-28 19:30] LABS: URINE APPEARANCE CLEAR (CLEAR); URINE PROTEIN NEGATIVE mg/dL (<30 mg/dL)
--- NOTE | 2017-12-29 09:08 | RAD ---
PROCEDURE: Right Ankle Radiographs. HISTORY: right ankle pain COMPARISON: None FINDINGS: BONES: Normal. No fracture. JOINTS: Normal. No osteoarthritis. Ankle mortise maintained. Talar dome intact SOFT TISSUES: Normal. OTHER FINDINGS: Vascular calcifications. IMPRESSION: No acute findings
--- NOTE | 2017-12-29 09:11 | RAD ---
HISTORY: freq falls, ? mental status changes COMPARISON: 06/19/2017 TECHNIQUE: Chest PA and lateral FINDINGS: LUNGS: No active pulmonary disease. PLEURA: No significant pleural effusion identified. No pneumothorax apparent. CARDIOVASCULAR: Mild cardiomegaly OSSEOUS STRUCTURES: No significant abnormalities. VISUALIZED UPPER ABDOMEN: Normal. OTHER FINDINGS: None. IMPRESSION: No active disease.
--- NOTE | 2017-12-29 09:50 | RAD ---
PROCEDURE: Radiographs of the pelvis. HISTORY: fall COMPARISON: None. FINDINGS: BONES: Pelvic Bones: Unremarkable. Hips: Grossly unremarkable. JOINTS: Sacroiliac Joints: Unremarkable. Pubic Symphysis: Unremarkable. OTHER FINDINGS: None. IMPRESSION: Unremarkable radiographs of the pelvis.
--- NOTE | 2017-12-29 09:52 | RAD ---
PROCEDURE: Radiographs of the Lumbar Spine. HISTORY: low back pain COMPARISON: No prior. FINDINGS: BONES: There is anterior subluxation of L5 over S1. There are no compression fractures DISC SPACES: Unremarkable. OTHER FINDINGS: None. IMPRESSION: There is anterior subluxation of L5 over S1. There are no compression fractures
[2017-12-29] MEDS ORDERED: Carbidopa/Levodopa 50/200 CR PO SCH ×3 (10:00→22:00)
[2017-12-29] MEDS: Metoprolol Succinate 25 mg XL Tab PO SCH (10:37)
[2017-12-29] MEDS ORDERED: Carbidopa/Levodopa 50/200 CR PO ONE ×2 (12:00→22:00)
[2017-12-29] MEDS: Insulin Reg-LOW-Coverage SC SCH ×3 (12:34→22:17)
[2017-12-29] MEDS: Carbidopa/Levodopa 50/200 CR PO SCH ×2 (12:35→22:03)
--- NOTE | 2017-12-29 13:28 | HP ---
HISTORY OF PRESENT ILLNESS: A 77-year-old black female with a long history of hypertension and Parkinson's disease. The patient recently had increasing difficulty in ambulating and moving and increasing confusion and disorientation. She had fallen on the day prior to admission, hitting her head and her back. The patient denied any loss of consciousness or palpitation, shortness of breath or dizziness. The patient does have difficulty with ambulation and bradykinesia secondary to her Parkinson's disease. The patient is complaining of some head pain and some back pain, was evaluated in the emergency room with CT and x-rays of the pelvis and skull with no apparent fractures. The patient was admitted because of her fall and her hypertension. The patient's blood pressure 150/85. She is awake and alert and oriented. Next morning, she does have difficulty moving and a resting tremor. PHYSICAL EXAMINATION: GENERAL: Shows a well-developed, well-nourished black female, in no apparent distress the following morning. HEENT: Within normal limits. HEART: Regular sinus rhythm. No significant murmurs. CHEST: Clear to auscultation and percussion. EXTREMITIES: Without cyanosis, clubbing or edema. IMPRESSION: Exacerbation and worsening of Parkinson's disease and recent fall, possible syncope, hypertension. Moody Dowell MD
--- NOTE | 2017-12-29 16:24 | CARD ---
APPROVED REPORT EKG Measurement Heart [id number] <Conclusion> Poor data quality, interpretation may be adversely affected Normal sinus rhythm Nonspecific T wave abnormality Abnormal ECG
--- NOTE | 2017-12-29 17:40 | US ---
PROCEDURE: Duplex ultrasound of the carotid and vertebral arteries. HISTORY: Syncope COMPARISON: None available. TECHNIQUE: Grayscale and duplex Doppler evaluation of the cervical carotid and vertebral arteries were performed. The common carotid, carotid bifurcations and cervical ICA and proximal ECA were evaluated. The vertebral arteries were evaluated for gross patency and direction. FINDINGS: There are calcified atherosclerotic plaques in the carotid bulbs and proximal internal carotid arteries. There is also intimal thickening. RIGHT CAROTID ARTERIES: Common Carotid Artery: Normal. Maximal flow velocity of 91.2 cm/s. Carotid Bifurcation: Normal. Internal Carotid Artery:Normal. Maximal flow velocity of 74 cm/s. External Carotid Artery (proximal branches): Normal. Maximal flow velocity of 73 cm/s. ICA/CCA Ratio: 1.0 LEFT CAROTID ARTERIES: Common Carotid Artery: Normal. Maximal flow velocity of 99 cm/s. Carotid Bifurcation: Normal. Internal Carotid Artery:Normal. Maximal flow velocity of 78 cm/s. External Carotid Artery (proximal branches): Normal. Maximal flow velocity of 86 cm/s. ICA/CCA Ratio: 1.0 VERTEBRAL ARTERIES: Right Vertebral Artery: Patent. Antegrade flow. Left Vertebral Artery: Patent. Antegrade flow. OTHER FINDINGS: None. IMPRESSION: No evidence of hemodynamically significant stenosis by peak systolic velocity criteria.
[2017-12-29] MEDS: Sodium Chloride 0.9% 1,000 ML IV SCH (20:40)
[2017-12-30] MEDS ORDERED: Carbidopa/Levodopa 50/200 CR PO SCH (07:30)
[2017-12-30] MEDS: Carbidopa/Levodopa 50/200 CR PO SCH ×2 (08:41→13:29)
[2017-12-30] MEDS: Insulin Reg-LOW-Coverage SC SCH ×4 (08:41→22:00)
--- NOTE | 2017-12-30 10:06 | PN ---
DATE: SUBJECTIVE: A 77-year-old black female, admitted to the hospital with exacerbation of Parkinson's disease and fall. The patient is afebrile. Vital signs are stable. Blood pressure 150/90. The patient has had some change in her Sinemet dose that dose is being administered at this point. The patient's urinalysis is negative. I think she had a normal carotid Doppler, Additionally, waiting for the Holter. Physical therapy and possible subacute rehab because of her recent episodes of falls and increase in weakness. Moody Dowell MD
[2017-12-30] MEDS: Metoprolol Succinate 25 mg XL Tab PO SCH (11:04)
[2017-12-30] MEDS: Sodium Chloride 0.9% 1,000 ML IV SCH (22:12)
[2017-12-31] MEDS: Carbidopa/Levodopa 50/200 CR PO SCH ×3 (02:44→12:43)
[2017-12-31] MEDS: Insulin Reg-LOW-Coverage SC SCH ×2 (09:08→12:43)
[2017-12-31] MEDS: Metoprolol Succinate 25 mg XL Tab PO SCH (09:59)
[2017-12-31 10:04] VITALS: BP 163/78; PULSE 61
[2017-12-31 10:59] VITALS: RESP 20; TEMP 97.8; O2SAT 100
--- NOTE | 2017-12-31 13:57 | PN ---
DATE: SUBJECTIVE: A 77-year-old white female admitted the hospital with status post fall, change in mental status, worsening of Parkinson's. The patient is improving slightly with rearranged dose of her Sinemet. Vital signs are stable. She is afebrile. Her were negative. She is waiting for a Holter. She is doing physical therapy, occupational therapy. We are also putting a consult for possible transfer to [facility] for subcute rehab. Otherwise, her condition is unchanged. Moody Dowell MD
--- NOTE | 2018-01-02 05:59 | DS ---
HISTORY AND HOSPITAL COURSE: The patient is a 77-year-old black female, admitted to the hospital after a fall and worsening Parkinson's disease, has a long history of Parkinson's disease, hypertension, chronic urinary tract infection. The patient was admitted, had a septic workup, which was negative. Patient was seen by physical therapy, occupational therapy. She had a CAT scan of the pelvis, head, back without evidence of fracture. The patient was started on physical therapy and occupational therapy. She was continued on her anti-Parkinson medications, which were adjusted. Eventually she was able to be accepted and transferred to [facility] for continued rehabilitation. FINAL DISCHARGE DIAGNOSES: Syncope, fall, worsening Parkinson's disease, and hypertension. Moody Dowell MD
== END 2017-12-31 13:38 | DRG 57 ==
LOC: ED 16:21 → ERH 18:26 → 3RSO 20:00
PROVIDERS: ADMIT Internal Medicine; ATTEND Internal Medicine
DX: G20 Parkinson's disease (principal); R29.6 Repeated falls; R26.2 Difficulty in walking, not elsewhere classified; I10 Essential (primary) hypertension; R53.1 Weakness; R41.0 Disorientation, unspecified; Z91.81 History of falling

== ENCOUNTER 2018-05-15 19:28 | Observation (INO) | payer MEDICARE, BC ==
[2018-05-15 19:28] VITALS: PULSE 67
[2018-05-15 19:37] VITALS: BMI 26.9
--- NOTE | 2018-05-15 20:01 | ED PDOC ---
Arrival/HPI - General Time Seen by Provider: 05/15/18 19:30 Historian: Patient, Family - History of Present Illness Associated Symptoms (Text): 78yo female, history of Parkinson's disease, A-fib with ablation and resolution , brought to ER by her daughter for evaluation of left sided chest pain and a room spinning sensation. Per daughter, patient had similar symptoms in the past when she had the A-Fib. Patient currently states the dizziness has now resolved and states the chest pain is intermittently present. Per patient's daughter, she has noted the patient to be more slow and confused and is concerned the patient might have a UTI. The patient denies any dysuria, hematuria, or lower back pain. No other complaints. PMD: Dr. 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 [place] Past Medical History - Provider Review Nursing Documentation Reviewed: Yes - Past History Past History: No Previous - Infectious Disease Hx of Infectious Diseases: None - Tetanus Immunization Tetanus Immunization: Unknown - Cardiac Hx Cardiac Disorders: Yes Hx Hypertension: Yes - Pulmonary Hx Respiratory Disorders: Yes Hx Pneumonia: Yes - Neurological Hx Neurological Disorder: Yes Hx Dementia: Yes Hx Parkinson's Disease: Yes - HEENT Hx HEENT Disorder: No - Renal Hx Renal Disorder: No - Endocrine/Metabolic Hx Endocrine Disorders: No - Hematological/Oncological Hx Blood Disorders: No - Integumentary Hx Dermatological Disorder: No - Musculoskeletal/Rheumatological Hx Musculoskeletal Disorders: No - Gastrointestinal Hx Gastrointestinal Disorders: No - Genitourinary/Gynecological Hx Genitourinary Disorders: Yes Hx Urinary Tract Infection: Yes - Psychiatric Hx Psychophysiologic Disorder: No Hx Substance Use: No - Surgical History Other/Comment: Hysterectomy - Anesthesia Hx Anesthesia: Yes Hx Anesthesia Reactions: No Hx Malignant Hyperthermia: No - Suicidal Assessment Feels Threatened In Home Enviroment: No Family/Social History - Physician Review Nursing Documentation Reviewed: Yes Family/Social History: No Known Family HX Smoking Status: Never Smoked Hx Alcohol Use: No Hx Substance Use: No Hx Substance Use Treatment: No Allergies/Home Meds Allergies/Adverse Reactions: Allergies No Known Allergies Allergy (Verified 05/15/18 19:37) Home Medications: Home Meds Medication Instructions Recorded Confirmed Lisinopril [Zestril] 10 mg PO DAILY 06/19/17 05/15/18 Metoprolol Succinate XL [Toprol XL] 25 mg PO DAILY 06/19/17 05/15/18 Carbidopa/Levodopa 25/100 mg 1 tab PO 5XD 12/28/17 05/15/18 [Sinemet] Review of Systems - Physician Review All systems were reviewed & negative as marked: Yes - Review of Systems Constitutional: absent: Fevers Eyes: absent: Vision Changes Respiratory: absent: SOB, Cough Cardiovascular: Chest Pain Gastrointestinal: absent: Abdominal Pain Genitourinary Female: absent: Dysuria, Frequency, Hematuria Musculoskeletal: absent: Back Pain Skin: absent: Rash Neurological: Dizziness Physical Exam Vital Signs Reviewed: Yes Vital Signs Temp Pulse Resp BP Pulse Ox 05/15/18 20:52 98.2 F 68 17 148/89 97 05/15/18 20:04 98.4 F 62 14 157/98 H 98 - Systems Exam Head: Present: Atraumatic, Normocephalic Pupils: Present: PERRL Extroacular Muscles: Present: EOMI Conjunctiva: Present: Normal Neck: Present: Normal Range of Motion Respiratory/Chest: Present: Clear to Auscultation, Good Air Exchange. No: Respiratory Distress, Accessory Muscle Use Cardiovascular: Present: Regular Rate and Rhythm, Normal S1, S2. No: Murmurs Abdomen: No: Tenderness, Distention, Peritoneal Signs Upper Extremity: Present: Normal Inspection, Normal ROM. No: Cyanosis, Edema Lower Extremity: Present: Normal Inspection, Normal ROM. No: Edema Neurological: Present: CN II-XII Intact, Motor Func Grossly Intact, Normal Sensory Function Skin: Present: Warm, Dry, Normal Color. No: Rashes Psychiatric: Present: Alert, Oriented x 3, Normal Insight, Normal Concentration Medical Decision Making ED Course and Treatment: Impression: 78yo female, history of parkinson's disease, A-fib with ablation, brought to ER for evaluation of chest pain and dizziness. Plan: -- Labs -- CT Head w/o contrast -- Urinalysis -- Aspirin 324mg PO Prior records reviewed: Patient was last seen in this ED on 12/28/17 and was admitted under Dr. Dowell Progress: 05/15/18 20:11 EKG: NSR @ 68bpm Normal intervals No ST/T changes 05/15/18 21:[address] York who is covering for Dr. Dowell. Requesting empiric treatment for uti pending cultures. Requesting cardiology consult. Agrees that due to hx of afib with ablation, no recent cardiac evaluation, age and risk factors, will need further evaluation for chest pain. 05/15/18 22:07 CT head shows generalized atrophy and chronic small vessel ischemic changes - Lab Interpretations Microbiology Results: Microbiology Results 05/15/18 19:56 Urine Urine Culture - Final <10,000 CFU/ML. MULTIPLE SPECIES. PROBABLE CONTAMINATION. Lab Results: 05/15/18 19:56 05/15/18 19:56 Lab Results 05/15/18 19:56: Urine Color Yellow, Urine Appearance Clear, Urine pH 6.0, Ur Specific Garrison >= 1.030, Urine Protein 30 H, Urine Glucose (UA) Negative, Urine Ketones 15 H, Urine Blood Negative, Urine Nitrate Negative, Urine Bilirubin Negative, Urine Urobilinogen 0.2, Ur Leukocyte Esterase Small H, Urine RBC 1 - 3, Urine WBC 2 - 5, Ur Epithelial Cells 3 - 4, Urine Bacteria Mod , Hyaline Casts 0 - 2 05/15/18 19:56: Sodium 141, Potassium 3.8, Chloride 102, Carbon Dioxide 31, Anion Gap 11, BUN 30 H, Creatinine 1.1, Est GFR ( Amer) 58, Est GFR (Non- Af Amer) 48, Random Glucose 117 H, Calcium 9.1, Total Bilirubin 0.6, AST 16, ALT 11, Alkaline Phosphatase 102, Total Creatine Kinase 34 L, Troponin I < 0.01 , Total Protein 7.4, Albumin 4.1, Globulin 3.3, Albumin/Globulin Ratio 1.2 05/15/18 19:56: PT 12.4, INR 1.09, APTT 32.0 05/15/18 19:56: WBC 6.1, RBC 4.20, Hgb 13.4, Hct 39.5, MCV 94.0, MCH 31.9, MCHC 33.9, RDW 14.0, Plt Count 207, MPV 10.8, Gran % 76.8 H, Lymph % (Auto) 17.9 L, Angelina % (Auto) 4.4, Eos % (Auto) 0.7 L, Baso % (Auto) 0.2, Gran # 4.67, Lymph # ( Auto) 1.1 L, Angelina # (Auto) 0.3, Eos # (Auto) 0.0, Baso # (Auto) 0.01 - RAD Interpretation Radiology Orders: 05/15/18 19:56 HEAD W/O CONTRAST [CT] Stat CHEST PORTABLE [RAD] Stat - Medication Orders Current Medication Orders: Discontinued Medications Aspirin (Aspirin Chewable) 324 mg PO STAT STA Stop: 05/15/18 19:58 Last Admin: 05/15/18 20:14 Dose: 324 mg Carbidopa/Levodopa (Sinemet Cr) 1 tab PO 5XD LEELA Last Admin: 05/17/18 17:37 Dose: 1 tab Carbidopa/Levodopa (Sinemet Cr) 1 tab PO Q8 LEELA Last Admin: 05/16/18 08:34 Dose: 1 tab Hydralazine HCl (Apresoline) 10 mg IVP ONCE ONE Stop: 05/16/18 03:54 Last Admin: 05/16/18 04:07 Dose: 10 mg IVP Administration Document 05/16/18 04:07 FG (Rec: 05/16/18 04:07 [facility]-[id number]) Charges for Administration # of IVP Administrations 1 MAR Pulse and Blood Pressure Document 05/16/18 04:07 FG (Rec: 05/16/18 04:07 [facility]-[id number]) Pulse Pulse Rate (60-90) 87 Blood Pressure Blood Pressure (100/60-150/90) 187/94 Ceftriaxone Sodium (Rocephin 1 Gram Ivpb) 1 gm in 100 mls @ 200 mls/hr IVPB STAT STA Stop: 05/15/18 22:24 Last Admin: 05/15/18 23:24 Dose: 200 mls/hr eMAR Start Stop Document 05/15/18 23:24 IT (Rec: 05/15/18 23:24 IT [id number]) Intravenous Solution Start Date 05/15/18 Start Time 23:24 Ceftriaxone Sodium (Rocephin 1 Gram Ivpb) 1 gm in 100 mls @ 100 mls/hr IVPB DAILY LEELA PRN Reason: Protocol Last Admin: 05/17/18 09:15 Dose: 100 mls/hr eMAR Start Stop Document 05/17/18 09:15 DH (Rec: 05/17/18 09:15 DH [id number]) Intravenous Solution Start Date 05/17/18 Start Time 09:15 End Date 05/17/18 End time 10:15 Total Infusion Time 60 Ibuprofen (Motrin Tab) 400 mg PO STAT STA Stop: 05/16/18 09:07 Last Admin: 05/16/18 10:13 Dose: 400 mg MAR Pain/Vitals Document 05/16/18 10:13 DH (Rec: 05/16/18 10:13 [place] [id number]) Presence of Pain Presence of Pain Yes Pain Scale Used Pain Scale Used Numeric Re-Assess: MAR Pain/Vitals Document 05/16/18 11:13 DH (Rec: 05/16/18 13:12 [place] [id number]) Pain Reassessment Is This A Pain ReAssessment? Yes Presence of Pain Presence of Pain No Ibuprofen (Motrin Tab) 400 mg PO Q6H [facility] Stop: 05/16/18 22:01 Last Admin: 05/16/18 22:37 Dose: 400 mg MAR Pain/Vitals Document 05/16/18 22:37 LOP[facility]AR (Rec: 05/16/18 22:39 [id number]) Pain Reassessment Is This A Pain ReAssessment? No Sleep Is patient sleeping during reassessment? No Presence of Pain Presence of Pain No Lisinopril (Zestril) 10 mg PO DAILY [facility] Last Admin: 05/17/18 09:13 Dose: 10 mg MAR Pulse and Blood Pressure Document 05/17/18 09:13 (Rec: 05/17/18 09:15 [place] [id number]) Pulse Pulse Rate (60-90) 61 Blood Pressure Blood Pressure (100/60-150/90) 142/74 Metoprolol Succinate (Toprol Xl) 25 mg PO K [facility] Last Admin: 05/17/18 09:15 Dose: 25 mg MAR Pulse and Blood Pressure Document 05/17/18 09:15 (Rec: 05/17/18 09:15 [place] [id number]) Blood Pressure Blood Pressure (100/60-150/90) 142/74 Potassium Chloride (K-Dur 20 Meq Er Tab) 40 meq PO ONCE ONE Stop: 05/17/18 09:51 Last Admin: 05/17/18 10:33 Dose: 40 meq - Scribe Statement The provider has reviewed the documentation as recorded by the Darren Merlos Provider Scribe Attestation: All medical record entries made by the Evangelinaibbinta were at my direction and personally dictated by me. I have reviewed the chart and agree that the record accurately reflects my personal performance of the history, physical exam, medical decision making, and the department course for this patient. I have also personally directed, reviewed, and agree with the discharge instructions and disposition. Disposition/Present on Arrival - Present on Arrival Any Indicators Present on Arrival: No History of DVT/PE: No History of Uncontrolled Diabetes: No Urinary Catheter: No History Surgical Site Infection Following: None - Disposition Have Diagnosis and Disposition been Completed?: Yes Diagnosis: Chest pain, Dizziness, UTI (urinary tract infection) Disposition: HOSPITALIZED Disposition Time: 22:07 Patient Plan: Observation Condition: FAIR
[2018-05-15 20:16] LABS: ALB/GLOB RATIO 1.2 (1.1-1.8); ALBUMIN 4.1 g/dL (3.0-4.8); ALT/SGPT 11 U/L (7-56); AST/SGOT 16 U/L (14-36); BLOOD UREA NITROGEN 30 mg/dL (7-21); CALCIUM 9.1 mg/dL (8.4-10.5); GFR NON-AFRICAN AMERICAN 48
[2018-05-15 20:18] LABS: BASO # 0.01 K/mm3 (0.0-2.0); BASO % 0.2 % (0.0-3.0); EOS % 0.7 % (1.5-5.0); GRAN # 4.67 (1.4-6.5); GRAN % 76.8 % (50.0-68.0); HEMOGLOBIN 13.4 g/dL (12.0-16.0); LYMPH # 1.1 (1.2-3.4); LYMPH % 17.9 % (22.0-35.0); MEAN CORPUSCULAR HEMOGLOBIN 31.9 pg (25.0-35.0); MEAN CORPUSCULAR HGB CONC 33.9 g/dl (31.0-37.0); MEAN PLATELET VOLUME 10.8 fl (7.0-11.0); MONO # 0.3 (0.1-0.6); MONO % 4.4 % (1.0-6.0); RBC 4.2 10^6/uL (3.5-6.1); WHITE BLOOD COUNT 6.1 10^3/ul (4.5-11.0)
[2018-05-15 20:19] LABS: URINE BILIRUBIN NEGATIVE (NEGATIVE); URINE BLOOD NEGATIVE (NEGATIVE); URINE GLUCOSE (UA) NEGATIVE (NEGATIVE); URINE LEUKOCYTE ESTERASE SMALL Leu/uL (NEGATIVE); URINE PROTEIN 30 mg/dL (<30 mg/dL); URINE UROBILINOGEN 0.2 E.U./dL (<1 E.U./dL)
[2018-05-15 20:20] LABS: URINE APPEARANCE CLEAR (CLEAR); URINE COLOR YELLOW (YELLOW)
[2018-05-15 20:22] LABS: INR 1.09; PROTHROMBIN TIME 12.4 SECONDS (9.4-12.5)
[2018-05-15 20:27] LABS: TROPONIN I < 0.01 ng/mL
[2018-05-15 21:02] LABS: URINE BACTERIA MOD (NEG); URINE HYALINE CAST 0 - 2 /hpf
[2018-05-15] MEDS ORDERED: cefTRIAXone (Rocephin) 1 gm Inj IVPB STA (21:51)
[2018-05-15] MEDS ORDERED: cefTRIAXone 1 GM/100 ML BAG IVPB STA (21:55)
[2018-05-16] MEDS ORDERED: Carbidopa/Levodopa 50/200 CR PO SCH (08:00)
[2018-05-16] MEDS ORDERED: Metoprolol Succinate 25 mg XL Tab PO SCH ×2 (08:00→10:00)
--- NOTE | 2018-05-16 08:28 | CP.PCM.CON ---
History of Present Illness - History of Present Illness History of Present Illness: Awake, denies chest pain, denies shortness of breath Reason for consultation:Cardiac evaluation of chest pain Brief history of present illness: A 78 year old female who was brought to the ER due to left sided chest pain, non radiating associated with dizziness.History of Parkinson's disease,atrial fibrillation with ablation and resolution,hypertension, pneumonia,dementia,urinary tract infection, hysterectomy. Seen and examined by me and Dr. Barnett Review of Systems - Review of Systems All systems: reviewed and no additional remarkable complaints except Review of Systems: per HPI Past Patient History - Infectious Disease Hx of Infectious Diseases: None - Tetanus Immunizations Tetanus Immunization: Unknown - Past Social History Smoking Status: Unknown If Ever Smoked - CARDIAC Hx Cardia Arrhythmia: Yes (afib w ablation) Hx Hypercholesterolemia: Yes Hx Hypertension: Yes - PULMONARY Hx Pneumonia: Yes - NEUROLOGICAL Hx Dementia: Yes Hx Dizziness: Yes Hx Parkinson's Disease: Yes - HEENT Hx Glaucoma: Yes - RENAL Hx Chronic Kidney Disease: No - ENDOCRINE/METABOLIC Hx Endocrine Disorders: No - HEMATOLOGICAL/ONCOLOGICAL Hx Blood Disorders: No - INTEGUMENTARY Hx Dermatological Problems: No - MUSCULOSKELETAL/RHEUMATOLOGICAL Hx Back Pain: Yes Hx Falls: Yes - GASTROINTESTINAL Hx Gastrointestinal Disorders: No - GENITOURINARY/GYNECOLOGICAL Hx Urinary Tract Infection: Yes - PSYCHIATRIC Hx Psychophysiologic Disorder: No Hx Substance Use: No - SURGICAL HISTORY Other/Comment: Hysterectomy - ANESTHESIA Hx Anesthesia: Yes Hx Anesthesia Reactions: No Hx Malignant Hyperthermia: No Meds Allergies/Adverse Reactions: Allergies Allergy/AdvReac Type Severity Reaction Status Date / Time No Known Allergies Allergy Verified 05/15/18 19:37 - Medications Medications: Current Medications Carbidopa/Levodopa (Sinemet Cr) 1 tab PO 5XD LEELA Carbidopa/Levodopa (Sinemet Cr) 1 tab PO Q8 LEELA Lisinopril (Zestril) 10 mg PO DAILY LEELA Lisinopril (Zestril) 10 mg PO DAILY LEELA Metoprolol Succinate (Toprol Xl) 25 mg PO BRK LEELA Physical Exam - Constitutional Appears: No Acute Distress - Head Exam Head Exam: NORMOCEPHALIC - Eye Exam Eye Exam: Normal appearance - ENT Exam ENT Exam: Mucous Membranes Moist - Respiratory Exam Respiratory Exam: Decreased Breath Sounds, Clear to Auscultation Bilateral, NORMAL BREATHING PATTERN - Cardiovascular Exam Cardiovascular Exam: REGULAR RHYTHM, +S1, +S2 Additional comments: Telemetry NSR - GI/Abdominal Exam GI & Abdominal Exam: Normal Bowel Sounds, Soft - Extremities Exam Extremities exam: Positive for: normal capillary refill - Neurological Exam Neurological exam: Alert, Oriented x3 - Psychiatric Exam Psychiatric exam: Normal Affect - Skin Skin Exam: Dry, Warm Results - Vital Signs Recent Vital Signs: Last Vital Signs Temp 98.9 F 05/16/18 06:00 Pulse 86 05/16/18 06:00 Resp 20 05/16/18 06:00 BP 149/83 05/16/18 06:00 Pulse Ox 97 05/16/18 06:00 - Labs Result Diagrams: 05/15/18 19:56 05/15/18 19:56 Assessment & Plan - Assessment and Plan (Free Text) Assessment: A 78 year old female who was brought to the ER due to left sided chest pain, non radiating associated with dizziness.History of Parkinson's disease,atrial fibrillation with ablation and resolution,hypertension, pneumonia,dementia, urinary tract infection,hysterectomy.Poor historian Denies chest pain now. Atypical chest pain. Initial troponin normal, EKG no ischemia. Review of previous cardiac work up: 12/29/17- Holter monitor:(Indication: Syncope)- NSR/SB- minimum HR-46/min, maximum HR-94/min Very rare APC's and VPC's 12/29/17- Carotid Ultrasound- Normal 01/04/14- QUINTON done- normal LV systolic function,Mild TR, no evidence of intracardiac mass No evidence of extrinsic compression of left atrium. Plan: ECHO to evaluate LV function Atypical chest pain Troponin level today Heart rate controlled, telemetry NSR 70's Blood pressure controlled today On Lisinopril 10 mg daily, will resume Toprol 25 mg daily Continue current treatment Continue current medications Will follow up Plan and treatment discussed with Dr. Barnett Thank you for the opportunity of taking care of Ms. Anila Puente - Date & Time Date: 05/16/18 Time: 06:30
--- NOTE | 2018-05-16 08:57 | HP ---
HISTORY OF PRESENT ILLNESS: Ms. Puente is 78-year-old female admitted today, brought to the ED by the daughter because of left-sided chest pain and confusion. She had a history of recurrent UTI in the past. She also has history of atrial fibrillation with ablation in the past. Heart rate has been controlled since ambulation as per the daughter. Denies any fever, nausea or vomiting. No hematuria. She has history of hypertension, blood pressure has been controlled with current medication. History of recurrent pneumonia in the past. PAST MEDICAL HISTORY: Hypertension, atrial fibrillation, recurrent UTI, pneumonia and dementia. PAST SURGICAL HISTORY: Hysterectomy. FAMILY HISTORY: Noncontributory. PERSONAL HISTORY: Never smoked. No history of alcohol abuse. ALLERGIES: NO KNOWN DRUG ALLERGIES. HOME MEDICATIONS: Lisinopril 10 mg daily, metoprolol XL 25 mg daily, carbidopa-levodopa 25/10 1 tablet p.o. 5 times a day. REVIEW OF SYSTEM: As per HPI. Rest of 12-point review of systems reviewed negative. PHYSICAL EXAMINATION: GENERAL: Comfortable in bed, in no acute distress. VITAL SIGNS: Temperature 98.7, heart rate 80 per minute, blood pressure 157/98, heart rate is 98 per minute, respiratory rate 14 per minute, pulse ox is 98% on room air. HEENT: Pallor positive. NECK: No lymphadenopathy. CHEST: Air entry present equal bilaterally. No added sounds. CARDIOVASCULAR: S1, S2 normal. No murmur. No gallop. ABDOMEN: Soft, nontender. No hepatosplenomegaly. EXTREMITIES: No edema. Spine nontender. NEUROCRITICAL CARE PHYSICIAN: Alert, oriented x3. No focal, sensory or motor deficit. LABORATORY DATA: White count 6.1, hemoglobin 13.4, hematocrit 39.5, platelet 207. Sodium 141, potassium 3.8, BUN 30, creatinine 1.1, glucose 117. UA positive. Granulocyte 76%, lymphocyte 17%. Chest x-ray, no infiltrate. EKG normal sinus rhythm at 68 beats per minute. No ST-T changes. Troponin less than 0.01. ASSESSMENT AND PLAN: 1. Left-sided chest pain. 2. Urinary tract infection. 3. History of atrial fibrillation. 4. Hypertension. 5. Parkinson disease. PLAN: She will be admitted to the hospital. We will do tele-monitoring. Cardiology consult, Dr. Barnett requested. 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 We will continue metoprolol 25 mg daily, ceftriaxone 1 g to be given stat for UTI. Urine culture to be sent. We will continue ceftriaxone 1 g daily. Aspirin 81 mg daily. Monitor cardiac troponins. Continue antihypertensive medication, Levodopa, carbidopa as per home schedule. Rica York MD
[2018-05-16] MEDS: Metoprolol Succinate 25 mg XL Tab PO SCH (09:10)
[2018-05-16 09:11] LABS: HEMOGLOBIN 13.2 g/dL (12.0-16.0); MEAN CELL VOLUME 92.8 fl (80.0-105.0); MEAN CORPUSCULAR HEMOGLOBIN 31.6 pg (25.0-35.0); MEAN PLATELET VOLUME 10.4 fl (7.0-11.0); RBC 4.18 10^6/uL (3.5-6.1); WHITE BLOOD COUNT 7.2 10^3/ul (4.5-11.0)
[2018-05-16 09:28] LABS: BLOOD UREA NITROGEN 22 mg/dL (7-21); CALCIUM 8.8 mg/dL (8.4-10.5); GFR NON-AFRICAN AMERICAN > 60
[2018-05-16 09:32] LABS: TROPONIN I < 0.01 ng/mL
--- NOTE | 2018-05-16 09:36 | RAD ---
Date of service: 05/15/2018 HISTORY: chest pain COMPARISON: Chest radiographs 12/28/2017. FINDINGS: LUNGS: No active pulmonary disease. PLEURA: No significant pleural effusion identified, no pneumothorax apparent. CARDIOVASCULAR: Stable cardiomegaly. No pulmonary vascular congestion. OSSEOUS STRUCTURES: No significant abnormalities. VISUALIZED UPPER ABDOMEN: Normal. OTHER FINDINGS: None. IMPRESSION: Stable cardiomegaly. No pulmonary congestion or interval pulmonary disease appreciable.
[2018-05-16] MEDS: cefTRIAXone 1 gm 1 GM/100 ML BAG IVPB SCH (10:13)
[2018-05-16] MEDS: Carbidopa/Levodopa 25/100 CR PO SCH ×4 (10:13→22:37)
--- NOTE | 2018-05-16 12:32 | CARD ---
APPROVED REPORT Date of service: 05/15/2018 EKG Measurement Heart [id number] <Conclusion> Normal sinus rhythm Normal ECG
[2018-05-16 15:33] LABS: TROPONIN I < 0.01 ng/mL
--- NOTE | 2018-05-16 15:51 | CT ---
Date of service: 05/15/2018 PROCEDURE: CT HEAD WITHOUT CONTRAST. HISTORY: head injury COMPARISON: Noncontrast head CT 12/28/2017. TECHNIQUE: Axial computed tomography images were obtained through the head/brain without intravenous contrast. Radiation dose: Total exam DLP = 1252.30 mGy-cm. This CT exam was performed using one or more of the following dose reduction techniques: Automated exposure control, adjustment of the mA and/or kV according to patient size, and/or use of iterative reconstruction technique. FINDINGS: HEMORRHAGE: No intracranial hemorrhage. BRAIN: Good corticomedullary differentiation is seen. Reiterated diffuse cerebral atrophy and chronic microangiopathy. No suspicious extra-axial fluid collection is identified and the midline brain anatomy appears grossly nonfocal as imaged. No mass effect identified. VENTRICLES: Unremarkable. No hydrocephalus. CALVARIUM: No destructive bony lesion or displaced fracture identified including through the skullbase. PARANASAL SINUSES: Unremarkable as visualized. No significant inflammatory changes. MASTOID AIR CELLS: Unremarkable as visualized. No inflammatory changes. OTHER FINDINGS: None. IMPRESSION: Age related neuro degenerative changes are identified without acute intracranial findings as discussed above. Follow up CT or MRI are available if clinically warranted. Concordant preliminary report from [facility], 05/15/2018.
--- NOTE | 2018-05-16 23:58 | CARD ---
APPROVED REPORT Date of service: 05/16/2018 EXAM: Two-dimensional and M-mode echocardiogram with Doppler and color Doppler. INDICATION EVAL LV FX 2D DIMENSIONS Left Atrium (2D)2.6 (1.6-4.0cm)IVSd1.7 (0.7-1.1cm) LVDd4.1 (3.9-5.9cm)LVOT Diameter2.0 (1.8-2.4cm) PWd1.4 (0.7-1.1cm)LVDs2.6 (2.5-4.0cm) FS (%) 36.1 %LVEF (%)66.2 (>50%) M-Mode DIMENSIONS Aortic Root3.10 (2.2-3.7cm)Aortic Cusp Exc.1.40 (1.5-2.0cm) Aortic Valve AoV Peak Koitmqbf770.0cm/sAoV VTI41.3cmAO Peak GR.19mmHg LVOT Peak Hmvbgoyn32.9cm/sLVOT VTI18.30cmAO Mean GR.9mmHg ANUM (VMAX)1.69cb7LMX (VTI)1.39cm2 Mitral Valve MV E Gwmmnicp76.1cm/sMV A Fyllnuuc97.8cm/sE/A ratio1.3 TDI Lateral E' Peak V5.75cm/sMedial E' Peak V4.83cm/sE/Lateral E'11.8 E/Medial E'14.1 Tricuspid Valve TR Peak Lrzhzynr115nj/sRAP PYONUUDK28amMwRT Peak Gr.23mmHg [id number] LEFT VENTRICLE The left ventricle is normal size. There is mild concentric left ventricular hypertrophy. The left ventricular function is normal.EF-65% There is normal LV segmental wall motion. Transmitral Doppler flow pattern is Grade III-reversible restrictive diastolic dysfunction. No left ventricle thrombus noted on this study. There is no ventricular septal defect visualized. There is no left ventricular aneurysm. There is no mass noted in the left ventricle. RIGHT VENTRICLE The right ventricle is normal size. There is normal right ventricular wall thickness. The right ventricular systolic function is normal. ATRIA The left atrium size is normal. The right atrium size is normal. The interatrial septum is intact with no evidence for an atrial septal defect. AORTIC VALVE The aortic valve is calcified and displays decreased opening. There is trace aortic regurgitation. There is mild to moderate valvular aortic stenosis. There is no aortic valvular vegetation. MITRAL VALVE The mitral valve is thickened but opens well. Mitral regurgitation is trace. There is no mitral valve stenosis. There is no evidence of mitral valve prolapse. TRICUSPID VALVE The tricuspid valve leaflets are thickened , but open well. There is mild tricuspid regurgitation.RVSP-32 mmof Hg. There is no tricuspid valve stenosis. There is no tricuspid valve prolapse or vegetation. PULMONIC VALVE The pulmonic valve is not well visualized, but probably normal. There is no pulmonic valvular regurgitation. There is no pulmonic valvular stenosis. GREAT VESSELS The aortic root is normal in size. The ascending aorta is normal in size. The pulmonary artery is normal. The IVC is normal in size and collapses >50% with inspiration. PERICARDIAL EFFUSION There is no pleural effusion. There is a trace pericardial effusion. <Conclusion> Normal chamber Size. EF-65% Trace MR/AR Mild Tr. RVSP-32 mmof Hg. There is a trace pericardial effusion.
[2018-05-17 00:36] VITALS: O2SAT 99
[2018-05-17] MEDS: Carbidopa/Levodopa 25/100 CR PO SCH ×4 (06:40→17:37)
[2018-05-17 07:34] LABS: BASO # 0.02 K/mm3 (0.0-2.0); BASO % 0.3 % (0.0-3.0); EOS # 0.1 (0.0-0.7); EOS % 0.8 % (1.5-5.0); GRAN # 4.19 (1.4-6.5); GRAN % 69.1 % (50.0-68.0); HEMOGLOBIN 12.9 g/dL (12.0-16.0); LYMPH # 1.4 (1.2-3.4); LYMPH % 22.4 % (22.0-35.0); MEAN CELL VOLUME 94.1 fl (80.0-105.0); MEAN CORPUSCULAR HEMOGLOBIN 31.5 pg (25.0-35.0); MEAN CORPUSCULAR HGB CONC 33.5 g/dl (31.0-37.0); MEAN PLATELET VOLUME 10.7 fl (7.0-11.0); MONO # 0.5 (0.1-0.6); MONO % 7.4 % (1.0-6.0); RBC 4.09 10^6/uL (3.5-6.1); RED CELL DISTRIBUTION WIDTH 14.3 % (11.5-14.5); WHITE BLOOD COUNT 6.1 10^3/ul (4.5-11.0)
--- NOTE | 2018-05-17 07:46 | CP.PCM.PN ---
Subjective - Date & Time of Evaluation Date of Evaluation: 05/17/18 Time of Evaluation: 06:40 - Subjective Subjective: Denies chest pain, denies shortness of breath, awake Reason for consultation:Cardiac evaluation of chest pain, non radiating.no evidence of ischemia, History of Parkinson's disease,atrial fibrillation with ablation and resolution,hypertension, pneumonia,dementia,urinary tract infection ,hysterectomy. Seen and examined by me and Dr. Barnett Objective - Vital Signs/Intake and Output Vital Signs (last 24 hours): Temp Pulse Resp BP Pulse Ox 98.3 F 69 20 141/76 99 05/17/18 06:00 05/17/18 06:00 05/17/18 06:00 05/17/18 06:00 05/17/18 06:00 Intake and Output: 05/17/18 05/17/18 06:59 18:59 Intake Total 300 Output Total 2 Balance 298 - Medications Medications: Current Medications Carbidopa/Levodopa (Sinemet Cr) 1 tab PO 5XD [facility] Last Admin: 05/17/18 06:40 Dose: 1 tab Ceftriaxone Sodium (Rocephin 1 Gram Ivpb) 1 gm in 100 mls @ 100 mls/hr IVPB DAILY [facility] PRN Reason: Protocol Last Admin: 05/16/18 10:13 Dose: 100 mls/hr Lisinopril (Zestril) 10 mg PO DAILY [facility] Last Admin: 05/16/18 10:11 Dose: 10 mg Metoprolol Succinate (Toprol Xl) 25 mg PO BRK [facility] Last Admin: 05/16/18 09:10 Dose: Not Given - Labs Labs: 05/17/18 07:00 05/16/18 09:00 PT 12.4 SECONDS (9.4-12.5) 05/15/18 19:56 INR 1.09 05/15/18 19:56 APTT 32.0 Seconds (25.1-36.5) 05/15/18 19:56 - Constitutional Appears: No Acute Distress - Eye Exam Eye Exam: Normal appearance - ENT Exam ENT Exam: Mucous Membranes Moist - Respiratory Exam Respiratory Exam: Decreased Breath Sounds, NORMAL BREATHING PATTERN - Cardiovascular Exam Cardiovascular Exam: +S1, +S2 - GI/Abdominal Exam GI & Abdominal Exam: Soft, Normal Bowel Sounds - Extremities Exam Extremities Exam: Normal Capillary Refill - Neurological Exam Neurological Exam: Alert, Awake, Oriented x3 - Psychiatric Exam Psychiatric exam: Normal Affect - Skin Skin Exam: Dry, Warm Assessment and Plan - Assessment and Plan (Free Text) Assessment: A 78 year old female who was brought to the ER due to left sided chest pain, non radiating associated with dizziness.History of Parkinson's disease,atrial fibrillation with ablation and resolution,hypertension, pneumonia,dementia, urinary tract infection,hysterectomy.Poor historian Denies chest pain now. Atypical chest pain. Initial troponin normal, EKG no ischemia.12/29/17- Holter monitor:(Indication: Syncope)- NSR/SB- minimum HR-46/min,maximum HR-94/min,Very rare APC's and VPC's,12/29/17- Carotid Ultrasound (Indication: Syncope)-Normal. ECHO done. Plan: ECHO done yesterday,Normal chambers, LVEF 65%, Trace MR/AR, Mild TR, trace pericardial effusion Atypical chest pain, musculoskeletal in nature, Motrin given Troponin level normal, no evidence of ischemia Heart rate controlled,Blood pressure controlled On Lisinopril 10 mg daily, Toprol 25 mg daily Continue current treatment Continue current medications On IV antibiotics for UTI Discontinue telemetry Will follow up Plan and treatment discussed with Dr. Barnett
[2018-05-17 07:55] LABS: ALB/GLOB RATIO 1.1 (1.1-1.8); ALBUMIN 3.6 g/dL (3.0-4.8); ALT/SGPT 9 U/L (7-56); AST/SGOT 14 U/L (14-36); BLOOD UREA NITROGEN 19 mg/dL (7-21); CALCIUM 8.6 mg/dL (8.4-10.5); GFR NON-AFRICAN AMERICAN > 60; HDL CHOLESTEROL 65 mg/dL (29-60)
[2018-05-17 08:01] LABS: LDL CHOLESTEROL 80 mg/dL (0-129)
[2018-05-17] MEDS: cefTRIAXone 1 gm 1 GM/100 ML BAG IVPB SCH (09:15)
[2018-05-17] MEDS: Metoprolol Succinate 25 mg XL Tab PO SCH (09:15)
[2018-05-17] MEDS ORDERED: Potassium Chloride 20 mEq ER Tab PO ONE (09:50)
--- NOTE | 2018-05-17 10:25 | DS ---
DISCHARGE DIAGNOSES: 1. Noncardiac chest pain. 2. History of atrial fibrillation. 3. Hypertension. 4. Parkinson disease. 5. Ruled out urinary tract infection. HOSPITAL COURSE: The patient was admitted with suspicion for UTI, confusion. She was given IV antibiotics ceftriaxone. Urine culture was negative. She remained stable during hospitalization. Evaluated by Dr. Barnett, Cardiology. Echocardiogram showed preserved LV function. She is cleared by Cardiology to be discharged. PHYSICAL EXAMINATION: GENERAL: On discharge, lying comfortable in bed in no acute distress. VITAL SIGNS: Temperature 98.6, heart rate 86 per minute, blood pressure 131/80, heart rate is 90 per minute, respiratory rate 15 per minute. HEENT: No pallor. NECK: No lymphadenopathy. CHEST: Air entry present and equal bilaterally. No added sounds. CARDIOVASCULAR: S1, S2 normal. No murmur, no gallop. ABDOMEN: Soft, nontender. No hepatosplenomegaly. EXTREMITIES: No edema. SPINE: Nontender. DATA: Labs reviewed. CONDITION ON DISCHARGE: Stable. DISPOSITION: Discharged home. HOME MEDICATIONS: Resume home medications. FOLLOWUP: Followup with Dr. Baldwin in 1 week. Time spent in preparing discharge and coordinating care is 58 minutes. Rica York MD
--- NOTE | 2018-05-17 12:30 | CARD ---
APPROVED REPORT Date of service: 05/17/2018 EKG Measurement Heart [id number] <Conclusion> Normal sinus rhythm Nonspecific T wave abnormality Abnormal ECG
[2018-05-17 18:19] VITALS: BP 115/68; PULSE 63; RESP 20; TEMP 98.3
== END 2018-05-17 21:26 | disposition home or self-care (01) ==
LOC: ED 19:28 → ERH 21:51 → 2RSO 23:54
PROVIDERS: ADMIT Internal Medicine Medical Oncology; ATTEND Internal Medicine Medical Oncology
DX: R07.89 Other chest pain (principal); I48.91 Unspecified atrial fibrillation; I10 Essential (primary) hypertension; G20 Parkinson's disease; N39.0 Urinary tract infection, site not specified; E78.00 Pure hypercholesterolemia, unspecified; F03.90 Unspecified dementia, unspecified severity, without behavioral disturbance, psychotic disturbance, mood disturbance, and anxiety; Z87.440 Personal history of urinary (tract) infections; Z87.01 Personal history of pneumonia (recurrent); Z90.710 Acquired absence of both cervix and uterus
CPT/HCPCS: 36415; 70450; 71045; 80048; 80053; 80061; 81001; 82550; 83036; 83615; 83735; 84100; 84443; 84484; 85025; 85027; 85610; 85730; 87086; 93005; 93306; 96365; 96366; 96375; 97116; 97161; 99285; G0378; G8978; G8979; J0360; J0696